=== PATIENT | female | born 1965 | race Caucasian/White ===

== ENCOUNTER 2017-06-09 15:21 | Emergency (ER) | payer OTHER ==
[~2017-06-09] VITALS: Ht 162.6 cm; Wt 66.2 kg
[~2017-06-09 15:21] MED LIST: BUPR300T PO; EXCETAB PO; FIORCAP6 PO; LORA0.5T PO; ULTR50TA PO; VENTAER INH
[2017-06-09 15:31] VITALS: BP 138/73; PULSE 122; RESP 16; TEMP 98; O2SAT 96
[2017-06-09 15:41] VITALS: BP 132/59; PULSE 100; RESP 16; TEMP 98.5; O2SAT 98
[2017-06-09] MEDS ORDERED: LEXA20TA PO (15:49)
[2017-06-09] MEDS ORDERED: DIME120C PO (15:49)
[2017-06-09] MEDS ORDERED: IBUP1TAB7 PO (15:49)
[2017-06-09] MEDS ORDERED: LORA0.5T PO (15:49)
[2017-06-09] MEDS ORDERED: WELLTAB39 PO (15:49)
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
[2017-06-09] MEDS ORDERED: ROBA500T PO (17:22)
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
== END 2017-06-09 17:37 | disposition home or self-care (01) ==
LOC: PHEFT 15:21
DX: S29.012A Strain of muscle and tendon of back wall of thorax, initial encounter (principal); S39.012A Strain of muscle, fascia and tendon of lower back, initial encounter; R51 Headache; M85.88 Other specified disorders of bone density and structure, other site; J45.909 Unspecified asthma, uncomplicated; F41.9 Anxiety disorder, unspecified; D64.9 Anemia, unspecified; G35 Multiple sclerosis; V49.50XA Passenger injured in collision with unspecified motor vehicles in traffic accident, initial encounter
CPT/HCPCS: 70450; 72100; 72125; 99284